=== PATIENT | female | born 1995 | race Caucasian/White ===

== ENCOUNTER 2024-03-19 16:00 | Emergency (ER) | payer MEDICAID ==
[~2024-03-19] VITALS: Ht 160 cm; Wt 59.0 kg
[2024-03-19 16:07] VITALS: O2SAT 100
[2024-03-19 18:39] LABS: HEMATOCRIT. 35.2 % (36.0-48.0); HEMOGLOBIN. 11.9 g/dL (12.0-16.0); MEAN CORPUSCULAR HEMOGLOBIN 33.2 pg (28.0-32.0); MEAN CORPUSCULAR HGB CONC 33.8 g/dL (31.0-37.0); MEAN CORPUSCULAR VOLUME 98.1 fL (81.0-99.0); MEAN PLATELET VOLUME 7.7 fl (7.4-10.4); PLATELET 369 x1000/uL (130-400); RED BLOOD CELL COUNT 3.59 mill/uL (4.2-5.4); RED CELL DISTRIBUTION WIDTH 12.5 % (11.6-14.6); WHITE BLOOD COUNT 18.6 x1000/uL (4.5-11.0)
[2024-03-19 18:40] LABS: DIFFERENTIAL COMMENT 1
[2024-03-19 18:45] LABS: CHLORIDE 107 mEq/L (98-107); POTASSIUM 3.7 mEq/L (3.5-5.1); SODIUM 139 mEq/L (136-145)
[2024-03-19 18:46] LABS: CARBON DIOXIDE 18 mEq/L (21-32)
[2024-03-19] MEDS: MORPHINE SULFATE 4 MG/ML INJ (FOR IV/IM USE) IV ONE (18:50)
[2024-03-19] MEDS: SODIUM CHLORIDE 0.9% 1,000 ML IV ONE (18:50)
[2024-03-19] MEDS: ONDANSETRON HCL 4MG/2ML INJ IV ONE (18:50)
[2024-03-19 18:51] LABS: CREATININE 0.7 mg/dL (0.6-1.0); GLUCOSE 134 mg/dL (70-105); UREA NITROGEN BLOOD 14 mg/dL (9-23)
[2024-03-19 18:55] VITALS: BP 100/58; PULSE 72; RESP 18; TEMP 36.8; O2SAT 100
[2024-03-19 19:27] LABS: PLATELET ESTIMATE NORMAL
[2024-03-19 19:29] LABS: B-HCG QUANTITATIVE 2488 mIU/mL (<3)
[2024-03-19] MEDS ORDERED: HYDR-4001 MT (20:31)
== END 2024-03-19 20:40 | disposition home or self-care (01) ==
LOC: ER 16:00 → EDBEDREQ 20:17 → ER 20:40
DX: O46.8X1 Other antepartum hemorrhage, first trimester (principal); O03.4 Incomplete spontaneous abortion without complication; D72.829 Elevated white blood cell count, unspecified; Z3A.12 12 weeks gestation of pregnancy
CPT/HCPCS: 80048; 84702; 85025; 86850; 86900; 86901; 36415; 76801; 76817; 96361; 96374; 96375; 99285; J2405; J2270; J7030; Z7610